=== PATIENT | male | born 1975 | race Caucasian/White ===

== ENCOUNTER 2021-03-11 11:17 | Emergency (ER) | payer OTHER ==
[~2021-03-11] VITALS: Ht 177.8 cm; Wt 90.8 kg
[2021-03-11] MEDS ORDERED: ACETAMINOPHEN 500 MG TABLET PO ONE (11:30)
[2021-03-11] MEDS ORDERED: CEFTRIAXONE 1,000 MG in DEXTROSE 5% 50 ML IVPB ONE (11:30)
[2021-03-11] MEDS ORDERED: SODIUM CHLORIDE FLUSH 10ML SYR IVF ONE (11:30)
[2021-03-11] MEDS ORDERED: ACETAMINOPHEN 500 MG TABLET ONE (12:00)
--- NOTE | 2021-03-11 12:13 | NUR ---
PIV STARTED, ABX STARTED AFTER BLOOD CULTURES.
[2021-03-11 12:25] LABS: BASOPHILS % (AUTO) 0 % (0-1); EOSINOPHILS % (AUTO) 1 % (1-7); HCT (SEDRATE) 43.2 % (39.2-51.8); LYMPHOCYTES % (AUTO) 22 % (22-44); MEAN CORPUSCULAR HEMOGLOBIN 32.2 pg (27.5-34.5); MEAN CORPUSCULAR HGB CONC 34.3 g/dL (33.2-36.2); MONOCYTES % (AUTO) 10 % (2-9); NEUTROPHILS % (AUTO) 67 % (42-75); PLATELET COUNT 238 x10^3/uL (130-400); RED CELL DISTRIBUTION WIDTH 12.7 % (9.4-14.8)
[2021-03-11 12:33] LABS: ALBUMIN 3.7 g/dL (3.4-5.0); ANION GAP 4 mmol/L (5-15); CALCIUM 8.6 mg/dL (8.5-10.1); CHLORIDE 110 mmol/L (98-107); CREATININE 0.94 mg/dL (0.7-1.3)
[2021-03-11 14:26] VITALS: BP 124/88
--- NOTE | 2021-03-11 14:30 | NUR ---
PT REC'VD DISCHARGE INSTRUCTIONS AND EDUCATION. PT HAD NO FURTHER QUESTIONS. PT AMBUALTED TO DC AREA, STEADY GAIT.
== END 2021-03-11 14:44 | disposition home or self-care (01) ==
LOC: ED 11:40
DX: L03.114 Cellulitis of left upper limb (principal)
CPT/HCPCS: 36415; 80048; 82040; 85025; 85651; 86140; 87040; 96365; 99284; J0696